=== PATIENT | female | born 1935 | race Two or more races ===

== ENCOUNTER 2018-12-07 08:36 | Outpatient (CLI) | payer MEDICARE, MEDICAID | END 2018-12-07 23:59 | disposition home health service (06) | LOC: WOU 08:36 | PROVIDERS: ATTEND Podiatrist Foot & Ankle Surgery | DX: I70.262 Atherosclerosis of native arteries of extremities with gangrene, left leg (principal); L97.422 Non-pressure chronic ulcer of left heel and midfoot with fat layer exposed; E11.40 Type 2 diabetes mellitus with diabetic neuropathy, unspecified; E11.69 Type 2 diabetes mellitus with other specified complication; M86.8X7 Other osteomyelitis, ankle and foot; Z79.84 Long term (current) use of oral hypoglycemic drugs; Z87.891 Personal history of nicotine dependence; R13.10 Dysphagia, unspecified; Z93.1 Gastrostomy status; Z95.1 Presence of aortocoronary bypass graft; G30.9 Alzheimer's disease, unspecified; F02.80 Dementia in other diseases classified elsewhere, unspecified severity, without behavioral disturbance, psychotic disturbance, mood disturbance, and anxiety; Z99.3 Dependence on wheelchair | CPT/HCPCS: 82962; A6402; G0463 ==